=== PATIENT | female | born 1970 | race Caucasian/White ===

== ENCOUNTER 2019-04-22 00:35 | Day surgery (SDC) | payer OTHER, SELFPAY ==
[2019-04-17 10:35] VITALS: BMI 21.5
--- NOTE | 2019-04-22 10:41 | WPDANESEPPF ---
Anes - Initial Pre Proc Eval Procedure: Operation Date: 04/22/19 11:30 Proposed Procedures p Screening Colonoscopy - Triston Alberto MD Date/Time: 04/22/19 10:41 Surgeon: Triston Alberto MD Pre Op Diagnosis: neoplasm screening Patient Data Age: 49 Gender: F Height: 5 ft Weight: 50 kg Allergies Allergy/AdvReac Type Severity Reaction Status Date / Time Penicillins Allergy Unknown Verified 04/17/19 10:34 Home Medications Medication Instructions Recorded Confirmed Type eletriptan [Relpax] 20 mg PO ONCE PRN 04/17/19 04/17/19 History Patient hx anesthesia problems: none Family hx anesthesia problems: none PMFSH Past Medical History Medical History Hx of migraines Family History Family History Father Family history of elevated blood lipids Family history of obesity Patient's father is in good health Family history of allergic disorder Malignant neoplasm of prostate Mother Family history of elevated blood lipids Family history of osteoporosis Patient's mother is in good health Family history of malignant neoplasm of breast in first degree relative Grandparent Family history of osteoporosis Cerebrovascular accident Carcinoma of colon Diabetes mellitus Family history of malignant neoplasm of cervix Family history of malignant neoplasm of ovary Social History Social History Smoking status: Never smoker Alcohol intake: current Gender identity (if verbalized by the patient): Female Anes - Eval Final PreProcedure Day of Procedure 04/22/19 10:41 Patient weight: normal Heart: regular rate and rhythm Lungs: clear to auscultation Airway: Mallampati scale class 1 Neurological: alert and oriented Last oral intake: >/= 8 hours ASA classification: II Emergent: no Anesthetic plan: proceed Anesthesia type and monitoring: general GIVS and standard monitoring Informed Consent: The patient's anesthetic plan and its attendant risks and benefits were discussed with the patient/family/POA. Questions were solicited and answers provided to the satisfaction of the patient/family/POA.
[2019-04-22 10:47] VITALS: BMI 22.1
[2019-04-22] MEDS: LACTATED RINGERS 1,000 ML 150 ML IV CONT (10:52)
[2019-04-22 10:54] VITALS: BP 125/73; PULSE 62; RESP 16; TEMP 36.9; O2SAT 100
--- NOTE | 2019-04-22 11:19 | P.HP_ITS ---
History of Present Illness History of Present Illness Consent: Risks, benefits, and alternatives have been discussed and questions answered. Patient agrees to proceed with procedure. Chief complaint: neoplasm screening Narrative: Antonia Knowles is a 49 year old female [facility] Past Medical History Medical History Hx of migraines Family History Family History Father Family history of elevated blood lipids Family history of obesity Patient's father is in good health Family history of allergic disorder Malignant neoplasm of prostate Mother Family history of elevated blood lipids Family history of osteoporosis Patient's mother is in good health Family history of malignant neoplasm of breast in first degree relative Grandparent Family history of osteoporosis Cerebrovascular accident Carcinoma of colon Diabetes mellitus Family history of malignant neoplasm of cervix Family history of malignant neoplasm of ovary Social History Social History Smoking status: Never smoker Alcohol intake: current Gender identity (if verbalized by the patient): Female Meds Home Medications and Allergies Home Medications Medication Instructions Recorded Confirmed Type eletriptan [Relpax] 20 mg PO ONCE PRN 04/17/19 04/22/19 History Allergies Allergy/AdvReac Type Severity Reaction Status Date / Time Penicillins Allergy Unknown Verified 04/22/19 11:04 Vital Signs Vital Signs - 24 hr 04/22/19 10:54 Temperature 36.9 C Pulse Rate 62 Respiratory Rate 16 Blood Pressure 125/73 Pulse Oximetry 100 Exam Const: General: alert Orientation/consciousness: patient oriented x3 Resp: Auscultation: clear to auscultation bilaterally Cardio: Rhythm: regular rhythm GI: GI Palp: Yes Soft to palpation and No Tenderness to palpation present (GI) Neuro: General: patient oriented x3 Assessment and Plan Assessment and plan (1) Colon cancer screening: Code(s): Z12.11 - Encounter for screening for malignant neoplasm of colon Status: Acute Assessment and Plan: Colonoscopy with possible biopsy or polypectomy or cautery or injection of substances.
[2019-04-22 11:48] VITALS: BP 100/65; PULSE 73; RESP 16; O2SAT 100
[2019-04-22 11:58] VITALS: BP 104/69; PULSE 66; RESP 15; O2SAT 100
[2019-04-22 12:08] VITALS: BP 114/76; PULSE 65; RESP 18; O2SAT 100
== END 2019-04-22 12:22 | disposition home or self-care (01) ==
PROVIDERS: PCP Nurse Practitioner Family; Visit Provider Internal Medicine Gastroenterology
PROC: 0DJD8ZZ Inspection of Lower Intestinal Tract, Via Natural or Artificial Opening Endoscopic (ICD-10-PCS; CPT 45378; principal; 2019-04-22 11:30)
DX: Z12.11 Encounter for screening for malignant neoplasm of colon (principal); K57.30 Diverticulosis of large intestine without perforation or abscess without bleeding
CPT/HCPCS: 45378; J2704; J7120

== ENCOUNTER 2023-12-11 14:06 | Outpatient (CLI) | payer OTHER, SELFPAY ==
[2023-12-11 14:41] LABS: Hematocrit 42.3 % (37.0-47.0); Mean Corpuscular HGB Conc 33.1 g/dl (32-36); Mean Corpuscular Hemoglobin 30.7 pg (26-34); Mean Corpuscular Volume 92.8 fl (80-100); Mean Platelet Volume 9.4 fl (7.4-10.4); Platelet Count Result 275 k/mm3 (150-375); Red Blood Count 4.56 M/mm3 (4.2-5.4); Red Cell Distribution Width 12.7 % (11.5-14.5); White Blood Count 6.3 K/mm3 (4.5-10.0)
[2023-12-11 14:54] LABS: Alanine Aminotransferase 36 U/L (6-35); Albumin Level 4.6 g/dL (3.5-5.1); Alkaline Phosphatase 51 U/L (38-126); Anion Gap 8 mmol/L (4-12); Aspartate Amino Transferase 36 U/L (14-36); Bilirubin,Total 0.4 mg/dL (0.2-1.3); Blood Urea Nitrogen 18 mg/dL (7-17); Calcium 9.5 mg/dL (8.4-10.2); Carbon Dioxide 30 mmol/L (22-30); Chloride 101 mmol/L (98-107); Estimated Glomerular Filt Rate > 60; Glucose 85 mg/dL (65-110); Potassium 3.9 mmol/L (3.4-5.0); Sodium 139 mmol/L (137-145)
[2023-12-11 16:35] LABS: Thyroid Stimulating Hormone Reflex 0.995 uIU/mL (0.465-4.68)
[2023-12-11 17:10] LABS: Hepatitis B Surface Antigen Negative (Negative)
[2023-12-11 17:16] LABS: HAV RESULT Negative (Negative); Hepatitis B Core IgM Result Negative (Negative)
[2023-12-11 17:28] LABS: Hepatitis C Virus Antibody Negative (Negative)
[2023-12-12 15:19] LABS: GGT 29 U/L (3-70)
[2023-12-13 05:03] LABS: Hepatitis B Core Ab Total NON-REACTIVE (NON-REACTIVE)
[2023-12-13 05:18] LABS: Ceruloplasmin 31 mg/dL (14-48)
[2023-12-14 14:44] LABS: Immunoglobulin A 173 mg/dL (47-310); TTG IGA AB <1.0 U/mL
[2023-12-17 15:44] LABS: ALT 28 U/L (6-29); Alpha-2-Macroglobulin 184 mg/dL (106-279); Apolipoprotein A1 166 mg/dL (101-198); Fibrosis Stage F0; GGT 30 U/L (3-70); Haptoglobin 120 mg/dL (43-212); Necroinflammat Act Grade A0; Reference ID 5183789; Total Bilirubin 0.3 mg/dL (0.2-1.2)
[2023-12-18 04:53] LABS: Actin Antibody (IgG) <20 U (<20)
[2023-12-18 13:24] LABS: LKM 1 Antibody <=20.0 U (<=20.0)
== END 2023-12-11 14:07 | disposition home or self-care (01) ==
LOC: ANHLAB 14:08
PROVIDERS: PCP Nurse Practitioner Family; Visit Provider Nurse Practitioner
DX: R74.8 Abnormal levels of other serum enzymes (principal); K74.60 Unspecified cirrhosis of liver
CPT/HCPCS: 36415; 80053; 80074; 81596; 82390; 82784; 82977; 84443; 85027; 86038; 86039; 86364; 86376; 86704

== ENCOUNTER 2023-12-24 08:04 | Outpatient (CLI) | payer OTHER, SELFPAY ==
--- NOTE | ~2023-12-24 | US_ITS ---
EXAMINATION: US right upper quadrant DATE: 12/24/2023 08:33 INDICATION: Abnormal liver function tests. TECHNIQUE: Multiple grayscale and Doppler ultrasound images of the abdomen were obtained. COMPARISON: None FINDINGS: The visualized portions of the head, body, and tail of the pancreas are normal. The liver i s normal without focal lesion. There is normal flow in main portal vein. The gallbladder is normal in size. No gallstones or gallbladder wall thickening. There is no sonographic Swanson's sign. The commo n duct is normal and measures 3 mm. IMPRESSION: 1. Normal right upper quadrant ultrasound. Reviewed, dictated and finalized at location [] ING ROOM OPERATOR
== END 2023-12-24 08:05 | disposition home or self-care (01) ==
LOC: ANHIMG 08:04
PROVIDERS: PCP Nurse Practitioner Family; Visit Provider Nurse Practitioner
DX: R74.8 Abnormal levels of other serum enzymes (principal)
CPT/HCPCS: 76705

== ENCOUNTER 2024-05-14 12:59 | Outpatient (CLI) | payer OTHER, SELFPAY ==
--- NOTE | ~2024-05-14 | MMUS_ITS ---
EXAMINATION: MM diagnostic glen BI w theo, US breast RT limited HISTORY: Probable right breast abnormality TECHNIQUE: Additional 3-D tomosynthesis images of the breasts were performed and synthetic 2-D images were generated. CAD analysis was submitted and interpreted. High resolution Limited right breast ult rasound was performed. COMPARISON: 06/18/2023 BREAST PARENCHYMAL COMPOSITION: Not dense: There are scattered areas of fibroglandular density. FINDINGS: MAMMOGRAPHIC FINDINGS: There are no suspicious masses, calcifications or architectural distortion in either breast to sugges t malignancy. ULTRASOUND: Limited right breast ultrasound: Normal heterogeneous echotexture without focal solid or cystic mass. IMPRESSION: 1. No evidence for malignancy in either breast. 2. Routine yearly screening mammogram and regular clinical breast examination are recommended. BI-RADS Category 1: Negative Reviewed, dictated and finalized at location A. IMPRESSION: 1. No evidence for malignancy in either breast. 2. Routine yearly screening mammogram and regular clinical breast examination a re recommended. BI-RADS Category 1: Negative
--- OUTSIDE RECORDS SUMMARY | 2024-05-14 14:19 | XMS_ITS | Clinical Summary ---
Author Organization [facility] Address [facility] [place] [address] Care Team Providers Care Bit Bender Name Role Phone Beatris Rao NP Primary Care Provider [phone] Allergies Active Allergy Reactions Criticality Noted Date Comments Penicillins Unknown 11/08/2009 Medications eletriptan (RELPAX) 40 mg tabletIndicatio ns:Migraine 8 Active multivitamin tabletIndicatio ns:Vitamin Deficiency Prevention Active cholecalciferol , vitamin D3, 1,000 unit tablet,chewable Take by mouth. Active azithromycin (ZITHROMAX) 250 mg tablet azithromycin 250 mg tablet Active fluticasone propionate (FLONASE) 50 mcg/actuation nasal spray fluticasone propionate 50 mcg/actuation nasal spray,suspension Active metroNIDAZOLE (FLAGYL) 500 mg tablet TK 1 T PO Q 8 H FOR 7 DAYS 0 9 Active eletriptan (RELPAX) 20 mg tablet eletriptan 20 mg tablet tk 1 tab as needed for migraines Active atovaquone-prog uanil (MALARONE) 250-100 mg tablet atovaquone 250 mg-proguanil 100 mg tablet Active rosuvastatin (CRESTOR) 20 mg tablet Take 1 tablet (20 mg total) by mouth daily Active omeprazole (PriLOSEC) 20 mg capsule TAKE 1 CAPSULE BY MOUTH 30 TO 60 MINUTES BEFORE BREAKFAST 5 Active Active Problems Problem Noted Date Diagnosed Date Breast cancer screening, high risk patient 02/01 Encounters Date Type Department Care Team Description 03/17/2024 9:45 AM BIOFUELS OPERATIONS MANAGER Office Visit [facility] Pulmonary at [place] [address] [facility] [address] [place] [address] Antonio Vazquez MD Lung nodule, multiple (Primary Dx) 03/10/2024 9:47 AM BIOFUELS OPERATIONS MANAGER - 03/10/2024 11:59 PM BIOFUELS OPERATIONS MANAGER Hospital Encounter [facility] [address] [place] [address] Lung nodule, multiple Discharge Disposition: Discharge to home or self care from Last 3 Months Medical History Medical History Date Comments GERD (gastroesophageal reflux disease) Migraines Hypercholesteremia Family History Medical History Relation Name Comments Prostate cancer Father Prostate ca - (Added by TW Conv) Breast cancer Mother Adenocarcinoma of breast - (Added by TW Conv) Relation Name Status Comments Father Mother Social History Tobacco Use Types Packs/Day Years Used Date Smoking Tobacco: Never Comments No Sex and Gender Information Value Date Recorded Sex Assigned at Not on file Legal Sex Female 5:46 AM BIOFUELS OPERATIONS MANAGER Gender Identity Female 03/10/2022 10:57 AM BIOFUELS OPERATIONS MANAGER Sexual Orientation Straight 03/10/2022 10 :57 AM BIOFUELS OPERATIONS MANAGER Obstetrics History Last Filed Vital Signs Vital Sign Reading Time Taken Comments Blood Pressure 102/58 03/17/2024 9:41 AM BIOFUELS OPERATIONS MANAGER Pulse 70 03/17/2024 9:41 AM BIOFUELS OPERATIONS MANAGER Temperature 36.3 C (97.3 F) 03/17/2024 9:41 AM BIOFUELS OPERATIONS MANAGER Respiratory Rate 16 08/06/2023 11:0 5 AM CDT Oxygen Saturation 99% 03/17/2024 9:41 AM BIOFUELS OPERATIONS MANAGER Inhaled Oxygen Concentration - - Weight 53.5 kg (117 lb 14.4 oz) 03/17/2024 9:41 AM BIOFUELS OPERATIONS MANAGER Height 152.4 cm (5') 03/17/2024 9:41 AM BIOFUELS OPERATIONS MANAGER Body Mass Index 23.03 03/17/2024 9:41 AM BIOFUELS OPERATIONS MANAGER Plan of Treatment Health Maintenance Due Date Last Done Comments Cervical Cancer Screening 1969 Colon Cancer Screening-Colonoscopy 1969 Depression Screening 1969 Hepatitis C Screening 1969 DTaP/Tdap/Td Vaccine (1 - Tdap) 1980 Hepatitis B Screening 1987 Regular Well Visit/Exam 18-64 1987 Covid-19 Vaccine ( season) 2023 11/18/2020, 05/07/2020, 04/13/2020 Breast Cancer Screening-Mammogram 06/17/2024 06/18/2023, 05/03/2022, 03/21/2021, Additional history exists Zoster Vaccine Completed 01/12/2021, 09/20/2020 Influenza Vaccine Completed 11/19/2023, , 11/27/2018, Additional history exists Pneumococcal vaccine <65 Aged Out No longer eligible based on patient's age to complete this topic Procedures Procedure Name Priority Date/Time Associated Diagnosis Comments CT CHEST WO CONTRAST Schedule Routine, Read Routine (OP Routine) 03/10/2024 10:11 AM BIOFUELS OPERATIONS MANAGER Lung nodule, multiple DIAGNOSTIC MAMMOGRAM BILATERAL W BENNIE Schedule Routine, Read Routine (OP Routine) 06/18/2023 2:24 PM CDT Mass of left breast, unspecified quadrant from Last 3 Months or Most Recently Relevant to Health Maintenance Results * CT chest without contrast (03/10/2024 10:11 AM BIOFUELS OPERATIONS MANAGER) Anatomical Region Laterality Modality Body N/A Computed Tomogra phy 03/11/2024 8:04 AM BIOFUELS OPERATIONS MANAGER Narrative 03/11/2024 8:16 AM BIOFUELS OPERATIONS MANAGER EXAM DESCRIPTION: CT CHEST WO CONTRAST REASON FOR STUDY: Lung nodules, multiple, lung nodule F/u to pulmonary nodules last seen on ct done 03/14/23. TECHNIQUE: CT scan of the chest performed without intravenous contrast using helical scanning technique. Reconstructed coronal and sagittal MPR images reviewed. All images stored on PACS. Automated exposure control was used as a dose optimization technique for this examination. COMPARISON: Outside CT 03/14/2023 REFERENCE: Per ACR white paper recommendations, unless otherwise specified no follow-up imaging is recommended for incidental renal and adrenal lesions per consensus recommendations based on imaging criteria. Further lab evaluation could be pursued based on clinical findings. FINDINGS: The sensitivity for detection of solid visceral lesions is diminished without the use of intravenous contrast. HARDWARE/LINES/TUBES: None. VASCULATURE: No thoracic aortic aneurysm. MEDIASTINUM/HEART: Heart size within normal limits. No significant pericardial effusion. Esophagus is unremarkable. CORONARY ARTERY CALCIFICATION: No significant coronary atherosclerotic calcifications. LYMPH NODES: Partially calcified lymph nodes likely representing sequela of previous granulomatous disease. No pathologically enlarged lymphadenopathy. AIRWAY: Central airways are patent. LUNGS: Biapical pleural-parenchymal scarring. No focal consolidation, pneumothorax, or pleural effusion. Perifissural calcified nodule along the right oblique fissure, likely sequela of previous granulomatous disease. Multiple pulmonary nodules, including: Unchanged 4 mm subpleural medial left upper lobe pulmonary nodule (4; 26). Unchanged 2 mm lateral left upper lobe pulmonary nodule (4; 32). Unchanged irregular 5 mm right upper lobe pulmonary nodule (4; 18). No definite new suspicious pulmonary nodules. UPPER ABDOMEN: Trace perisplenic free fluid of unknown etiology, new from prior. BONES/SOFT TISSUES: No aggressive appearing osseous lesions. No acute osseous abnormality. subcentimeter nodules not meeting size criteria for imaging follow-up. IMPRESSION: Unchanged bilateral pulmonary nodules measuring up to 5 mm. No new suspicious pulmonary nodules. Trace perisplenic free fluid of unknown etiology, new from prior. Consider further evaluation with dedicated CT abdomen and pelvis as clinically appropriate. THIS IS AN ELECTRONICALLY VERIFIED FINAL REPORT 03/11/2024 8:16 AM - Electronically signed by Benjamin Montes M.D. NS: NS Report ID: [id number] Reading Location: [place] [address] Procedure Note Benjamin Montes MD - 03/11/2024 EXAM DESCRIPTION: CT CHEST WO CONTRAST REASON FOR STUDY: Lung nodules, multiple, lung nodule F/u to pulmonary nodules last seen on ct done 03/14/23. TECHNIQUE: CT scan of the chest performed without intravenous contrastusing helical scanning technique. Reconstructed coronal and sagittal MPR images reviewed. All images stored on PACS. Automated exposure control was usedas a dose optimization technique for this examination. COMPARISON: Outside CT 03/14/2023 REFERENCE: Per ACR white paper recommendations, unless otherwise specifiedno follow-up imaging is recommended for incidental renal and adrenal lesionsper consensus recommendations based on imaging criteria. Further labevaluation could be pursued based on clinical findings. FINDINGS: The sensitivity for detection of solid visceral lesions is diminishedwithout the use of intravenous contrast. HARDWARE/LINES/TUBES: None. VASCULATURE: No thoracic aortic aneurysm. MEDIASTINUM/HEART: Heart size within normal limits. No significant pericardial effusion. Esophagus is unremarkable. CORONARY ARTERY CALCIFICATION: No significant coronary atherosclerotic calcifications. LYMPH NODES: Partially calcified lymph nodes likely representing sequelaof previous granulomatous disease. No pathologically enlargedlymphadenopathy. AIRWAY: Central airways are patent. LUNGS: Biapical pleural-parenchymal scarring. No focal consolidation, pneumothorax, or pleural effusion. Perifissural calcified nodule alongthe right oblique fissure, likely sequela of previous granulomatous disease. Multiple pulmonary nodules, including: Unchanged 4 mm subpleural medial left upper lobe pulmonary nodule (4;26). Unchanged 2 mm lateral left upper lobe pulmonary nodule (4; 32). Unchanged irregular 5 mm right upper lobe pulmonary nodule (4; 18). No definite new suspicious pulmonary nodules. UPPER ABDOMEN: Trace perisplenic free fluid of unknown etiology, new from prior. BONES/SOFT TISSUES: No aggressive appearing osseous lesions. No acute osseous abnormality. subcentimeter nodules not meeting size criteriafor imaging follow-up. IMPRESSION: Unchanged bilateral pulmonary nodules measuring up to 5 mm. No newsuspicious pulmonary nodules. Trace perisplenic free fluid of unknown etiology, new from prior.Consider further evaluation with dedicated CT abdomen and pelvis as clinically appropriate. THIS IS AN ELECTRONICALLY VERIFIED FINAL REPORT 03/11/2024 8:16 AM - Electronically signed by Benjamin Montes M.D. NS: NS Report ID: [id number] Reading Location: [id number] Antonio Vazquez MD [facility] CT PROCEDURES Final Result * Diagnostic Mammogram Bilateral W Bennie (06/18/2023 2:24 PM CDT) Anatomical Region Laterality Modality Breast Bilateral Mammography 06/18/2023 2:38 PM CDT Impressions 06/18/2023 2:46 PM CDT 1. No mammographic evidence of malignancy in EITHER breast. 2. No sonographic evidence of in the region of concern in the LEFT breast. OVERALL FINAL ASSESSMENT: BI-RADS Category 1: Negative. RECOMMENDATION: Annual screening mammography is recommended. Dictated by: Reymundo Bustos M.D. The radiology attending physician has personally reviewed this study, and had reviewed and/or edited this written report and agrees with it. Electronically signed by: Sandra Cortez M.D. Narrative 06/18/2023 2:46 PM CDT EXAMINATION: BILATERAL DIGITAL DIAGNOSTIC MAMMOGRAM INCLUDING CAD AND BILATERAL DIGITAL BREAST TOMOSYNTHESIS; LEFT BREAST SONOGRAM HISTORY: 53-year-old woman with palpable area in the left breast with intermittent tenderness for the past 2 months. She is due for bilateral mammogram. COMPARISON: 05/03/2022 mammogram TECHNIQUE: Full field digital mammographic views of BOTH breasts were performed, including computer aided detection (CAD) and BILATERAL digital breast tomosynthesis (DBT). Directed ultrasound evaluation of the LEFT breast was performed. BREAST PARENCHYMAL COMPOSITION: There are scattered areas of fibroglandular density. MAMMOGRAM FINDINGS: A marker is placed over the area of palpable concern in the LEFT breast. There is no mammographic correlate. There is no suspicious mass, grouped calcifications, or architectural distortion in EITHER breast. SONOGRAM FINDINGS: There is no focal abnormal solid or cystic lesion suggestive of malignancy in the area of recent concern. Procedure Note Sandra Cortez MD - 06/18/2023 EXAMINATION: BILATERAL DIGITAL DIAGNOSTIC MAMMOGRAM INCLUDING CAD AND BILATERAL DIGITAL BREAST TOMOSYNTHESIS; LEFT BREAST SONOGRAM HISTORY: 53-year-old woman with palpable area in the left breast with intermittent tenderness for the past 2 months. She is due for bilateral mammogram. COMPARISON: 05/03/2022 mammogram TECHNIQUE: Full field digital mammographic views of BOTH breasts were performed, including computer aided detection (CAD) and BILATERAL digital breast tomosynthesis (DBT). Directed ultrasound evaluation of the LEFT breast was performed. BREAST PARENCHYMAL COMPOSITION: There are scattered areas of fibroglandular density. MAMMOGRAM FINDINGS: A marker is placed over the area of palpable concern in the LEFT breast. There is no mammographic correlate. There is no suspicious mass, grouped calcifications, or architectural distortion in EITHER breast. SONOGRAM FINDINGS: There is no focal abnormal solid or cystic lesion suggestive of malignancy in the area of recent concern. IMPRESSION: 1. No mammographic evidence of malignancy in EITHER breast. 2. No sonographic evidence of in the region of concern in the LEFT breast. OVERALL FINAL ASSESSMENT: BI-RADS Category 1: Negative. RECOMMENDATION: Annual screening mammography is recommended. Dictated by: Reymundo Bustos M.D. The radiology attending physician has personally reviewed this study, and had reviewed and/or edited this written report and agrees with it. Electronically signed by: Sandra Cortez M.D. Robert Chen MD IMG MAMMO PROCEDURES Final Result from Last 3 Months or Most Recently Relevant to Health Maintenance Insurance [facility] [id number] [facility] [id number] [facility] [id number] Member Subscriber Plan / Payer (Ef fective 2020-Present) Name:Antonia Osborne Member ID:[id number] Relation to Subscriber:Self Name:Antonia Osborne Subscriber ID:[id number] Payer ID:[id number] Type:[employer] HMO/PPO Address: [address] [place] [phone] Care Teams Bit Bender Relationship Specialty Start Date End Date Beatris Rao NP PCP - General Family Medicine 06/07/23
--- OUTSIDE RECORDS SUMMARY | 2024-05-14 14:19 | XMS_ITS | Referral Summary ---
Author Organization [facility] Address [facility] [place] [address] Care Team Providers Care Fibre Optic Cable Splicer Name Role Phone Beatris Rao NP Primary Care Provider Encounters Date Type Department Care Team Description 03/17/2024 9:45 AM FIELD CROP FARMER Office Visit [facility] Medical Group Pulmonary at [address] [place] [address] Antonio Vazquez MD Lung nodule, multiple (Primary Dx) 03/10/2024 9:47 AM FIELD CROP FARMER - 03/10/2024 11:59 PM FIELD CROP FARMER Hospital Encounter [facility] [address] [place] [address] Lung nodule, multiple Discharge Disposition: Discharge to home or self care from Last 3 Months Allergies Active Allergy Reactions Criticality Noted Date [...] MOUTH 30 TO 60 MINUTES BEFORE BREAKFAST Active Active Problems Problem Noted Date Diagnosed Date Breast cancer screening, high risk patient 02/01 Social History Tobacco Use Types Packs/Day Years Used Date Smoking Tobacco: Never Comments No Sex and Gender Information Value Date Recorded Sex Assigned at Not on file Legal Sex Female 5:46 AM FIELD CROP FARMER Gender Identity Female 03/10/2022 10:57 AM FIELD CROP FARMER Sexual Orientation Straight 03/10/2022 10 :57 AM FIELD CROP FARMER Last Filed Vital Signs Vital Sign Reading Time Taken Comments Blood Pressure 102/58 03/17/2024 9:41 AM FIELD CROP FARMER Pulse 70 03/17/2024 9:41 AM FIELD CROP FARMER Temperature 36.3 C (97.3 F) 03/17/2024 9:41 AM FIELD CROP FARMER Respiratory Rate 16 08/06/2023 11:0 5 AM CDT Oxygen Saturation 99% 03/17/2024 9:41 AM FIELD CROP FARMER Inhaled Oxygen Concentration - - Weight 53.5 kg (117 lb 14.4 oz) 03/17/2024 9:41 AM FIELD CROP FARMER Height 152.4 cm (5') 03/17/2024 9:41 AM FIELD CROP FARMER Body Mass Index 23.03 03/17/2024 9:41 AM FIELD CROP FARMER Plan of Treatment Not on file Procedures Procedure Name Priority Date/Time Associated Diagnosis Comments CT CHEST WO CONTRAST Schedule Routine, Read Routine (OP Routine) 03/10/2024 10:11 AM FIELD CROP FARMER Lung nodule, multiple DIAGNOSTIC MAMMOGRAM BILATERAL W BENNIE Schedule Routine, Read Routine (OP Routine) 06/18/2023 2:24 PM CDT Mass of left breast, unspecified quadrant from Last 3 Months or Most Recently Relevant to Health Maintenance Results * CT chest without contrast (03/10/2024 10:11 AM FIELD CROP FARMER) Anatomical Region Laterality Modality Body N/A Computed Tomogra phy 03/11/2024 8:04 AM FIELD CROP FARMER Narrative 03/11/2024 8:16 AM FIELD CROP FARMER EXAM DESCRIPTION: CT CHEST WO CONTRAST REASON [...] Benjamin Montes M.D. NS: NS Report ID: [id number] Reading Location: [id number] Procedure Note Benjamin Montes MD - 03/11/2024 [...] Benjamin Montes M.D. NS: NS Report ID: [id number] Reading Location: [place] [address] Antonio Vazquez MD IM CT PROCEDURES Final Result * Diagnostic Mammogram [...] Most Recently Relevant to Health Maintenance Insurance [facility] [id number] [employer] [facility] [id number] Care Teams Fibre Optic Cable Splicer Relationship Specialty Start Date End Date Beatris Rao NP PCP - General Family Medicine 06/07/23
--- OUTSIDE RECORDS SUMMARY | 2024-05-14 14:19 | XMS_ITS | Data Portability ---
Author Organization [place] [employer], Main Office Address [address] [place] [address] Care Team Providers Care Copper Etcher Name Role Phone YANNI GARCIA Primary Care Provider [phone] YANNI GARCIA Referring Provider [phone] Assessment Encounter Date Assessment Date Assessment LastModified by Organization Details LastModified Time 05/10/2022 05/10/2022 C-scope- 04/2019- normal- repeat 2029 WWE- RIGGING HELPER- Gustavo Mammogram- [facility] 04/2022- managed by RIGGING HELPER WEA-03/23/21 Call office if worse, ER if life threatening illness RTC 6 months and PRN She does voice understanding of plan and agrees [email or web address] Not available 05/10/2022 10:39:15 08/31/2022 08/31/2022 HPI: 52-year-old female came in today for evaluation of prominence of the soft tissue in the posterior aspects of both knees. She noticed this prominence over year ago. She was in the dressing room that had multiple mirrors and was able to see the posterior aspect of both her knees. She thought they were very prominent. She mentioned this to her primary care doctor when she saw her last and so she was sent for evaluation. Patient is an avid runner and has been doing this for years. She has no pain with any activities. Her knees do not hurt her at all. She has no limitations. she was just concerned about the prominence of the soft tissue. Physical exam: 52-year-old female alert pleasant. She is 4 ft 11 and 112 lb. She walks very well. Range of motion both knees is from 0-145 degrees. There is no pain with range of motion. Hip range of motion is full without discomfort. No pain with patellofemoral grind bilaterally. No swelling in either lower extremity. Normal stability in both knees. 2+ dorsalis pedis pulse in both feet. I had the patient stand and when she stands she hyperextends her knees about 3 or 4 . At that point there was a prominence of the soft tissue posteriorly. When she is supine is minimally prominent. There is no tenderness to it. they are nonpulsatile. Skin is all normal there. Impression: Patient has prominence of the soft tissue in the posterior aspect of both her knees. I think this is due to the fact that when she stands she hyperextends causing this area to be more prominent. She is completely asymptomatic, even if she was developing small Byrd cysts there would be no treatment needed since she is not having any symptoms. But again I think this is more prominence of the soft tissue due to hyperextension of her knees when she is standing. If she starts to develop symptoms or problems with the knees certainly we can see her back. Otherwise we will see her back as needed. [email or web address] Not available 08/31/2022 11:45:27 11/08/2022 11/08/2022 C-scope- 04/2019- normal- repeat 2029 WWE- RIGGING HELPER- Gustavo Mammogram- [facility] 04/2022- managed by RIGGING HELPER WEA-05/10/22 Call office if worse, ER if life threatening illness RTC 6 months and PRN She does voice understanding of plan and agrees [email or web address] Not available 11/08/2022 13:49:56 Plan of Treatment Reminders Order Date Submit Date Provider Last Modified By Organization Details Last Modified Time Details Appointments Any 15 2024 09:30A Leida Rao APRN Not available Not available Not available Lab lipid panel, serum 2023 AMALIA Not available 11/21/2023 15:26:22 CMP, serum or plasma 2023 [email or web address] Not available 11/28/2023 08:51:08 CBC w/ auto diff 2023 [email or web address] Not available 11/28/2023 08:51:08 TSH, serum or plasma 2023 [email or web address] Not available 11/28/2023 08:51:08 vitamin D, 25-hydrox y, total, serum 2023 024 [email or web address] Not available 11/28/2023 08:51:08 HbA1c (hemoglob in A1c), blood 2023 024 [email or web address] Not available 11/28/2023 08:51:09 CBC w/ auto diff 2022 023 AMALIA Not available 08/30/2022 13:08:21 CMP, serum or plasma 2022 023 AMALIA Not available 08/30/2022 13:14:38 lipid panel, serum 2022 023 AMALIA Not available 08/30/2022 13:14:41 TSH, serum, reflex free T4 2022 023 Not available 09/04/2022 15:35:27 Referral pulmonolo gist referral 2023 024 abeba Vazquez MD, [address] [place] [address], [address] [facility] [address], [place], [address], 12/10/2023 07:34:53 orthopedi c surgeon referral 2022 023 Antonio Abebe MD, [address], [facility], [place], [address], 06/29/2022 09:22:45 Procedures None recorded. Surgeries None recorded. Imaging XR, knee 2022 023 [email or web address] [facility], [address] [place] [address] Rd, [place], [address], 08/31/2022 11:47:37 bone density 2022 023 Not available 10/03/2022 09:38:40 Medication Orders Flonase Allergy Relief 50 mcg/actua tion nasal spray,ebony pension 2023 024 [facility] #[id number], [address], [place], [id number], 11/21/2023 11:05:08 omeprazol e 20 mg capsule,d elayed release 2023 024 [facility] #[id number], [address], [place], [id number], 11/21/2023 11:05:02 eletripta n 40 mg tablet 2023 024 [facility] #[id number], [address], [place], [id number], 11/21/2023 11:05:01 rosuvasta tin 20 mg tablet 2023 024 [facility] #[id number], [address], [place], [id number], 11/21/2023 11:05:09 Patient TargetsNo targets recorded. Patient Instructions Encounter Date Encounter Id Patient Instructions Last Modified By Organization Details Last Modified Time 05/10/2022 [id number] INFLUENZA VACCIN E TD/TDAP Recommended today, patient declined Ordered P atient will get at local pharmacy/health department PNEUMONIA VACCINE Ordered Recommende d today, patient declined Patient will get at local pharmacy/health department Recomme nded at age 64 SHINGLES Ordered Recommende d today, patient declined Patient will get at local pharmacy/health department MAMMOGRAM: Last Mammogram _ No screening necessary patient is up to date DEXA SCAN Recommended today, but patient declined Ordered CERVICAL SCREENING/PELVIC EXAMINATION Recommended today, but patient declined Ordered N o screening necessary patient is up to date COLORECTAL SCREENING: Last Colonoscopy No screening necessary patient is up to date DEPRESSION SCREENING Negative BMI Overweight Appropr iate NUTRITION Continue healthy eating & exercise PHYSICAL ACTIVITY Appropriate physical activity minimum of 10-20 minutes of activity that causes mild breathlessness/day minimum of 20-30 minutes activity that causes mild breathlessness/day minimum of 30-40 minutes of activity that causes mild breathlessness/day VISION Ordered Recommende d today ALCOHOL USE No alcohol use TOBACCO USE non smoker LUNG CANCER SCREENING Non Smoker-not indicated SEXUALLY ACTIVE Yes, Patient is in monogamous relationship HEPATITIS C SCREENING Not indicated GLUCOSE SCREENING Ordered LIPID SCREENING Diagnosis of Hyperlipidemia [email or web address] Not available 05/10/2022 10:43:02 05/16/2023 [id number] Follow up in 6 months Referral to supervisor last model department Labs at next visit Not available 05/16/2023 10:33:20 11/21/2023 [id number] Follow up in 6 months Obtain labs Tests: Referral: Recommend: Tetanus vaccine Not available 11/21/2023 10:58:24 Reason for Referral Orthopedic Surgeon Referral for Synovial cyst of knee Referring Physician: Yanni Garcia, Internal Medicine, Encounter Date: 05/10/2022 [employer] Refinish Technician Referral for M ultiple nodules of lung Referring Physician: Beatris Rao, Internal Medicine, Encounter Date: 05/16/2023 Results Created Date Observation Date Name Description Value Unit Range Abnormal Flag Note LastModifiedBy Organization Detail LastModifiedTime 08/31/19 23 08/30/2022 CBC/C OMPLE TE BLD COUNT W/DIF F white blood cells 6.0 x10'3 /uL 4.2-[address] [facility] (Lab) [address] [place], [address], 08/30/2022 13:08:21 08/31/19 23 08/30/2022 CBC/C OMPLE TE BLD COUNT W/DIF F red blood cells 4.37 x10'6 /uL 3.80-[address] [facility] (Lab) [address] [place], [address], 08/30/2022 13:08:21 08/31/19 23 08/30/2022 CBC/C OMPLE TE BLD COUNT W/DIF F hemoglobin 13.4 g/dL 12.0-[address] [facility] (Lab) [address] [place], [address], 08/30/2022 13:08:21 08/31/19 23 08/30/2022 CBC/C OMPLE TE BLD COUNT W/DIF F hematocrit 41.8 % 35.7-[address] [facility] (Lab) [address] [place], [address], 08/30/2022 13:08:21 08/31/19 23 08/30/2022 CBC/C OMPLE TE BLD COUNT W/DIF F mean red cell volume 95.7 fL 82.0-[address] [facility] (Lab) [address] [place], [address], 08/30/2022 13:08:21 08/31/19 23 08/30/2022 CBC/C OMPLE TE BLD COUNT W/DIF F mean red cell hemoglobin 30.7 pg 27.0-[address] [facility] (Lab) [address] [place], [address], 08/30/2022 13:08:21 08/31/19 23 08/30/2022 CBC/C OMPLE TE BLD COUNT W/DIF F mean RBC HGB concentratio n 32.1 g/dL 31.0-[address] [facility] (Lab) [address] [place], [address], 08/30/2022 13:08:21 08/31/19 23 08/30/2022 CBC/C OMPLE TE BLD COUNT W/DIF F red cell distribution width 12.3 % 11.8-[address] [facility] (Lab) [address] [place], [address], 08/30/2022 13:08:21 08/31/19 23 08/30/2022 CBC/C OMPLE TE BLD COUNT W/DIF F platelets 270 x10'3 /uL 150-[address] [facility] (Lab) [address] [place], [address], 08/30/2022 13:08:21 08/31/19 23 08/30/2022 CBC/C OMPLE TE BLD COUNT W/DIF F mean platelet volume 9.7 fL 9.0-[address] [facility] (Lab) [address] [place], [address], 08/30/2022 13:08:21 08/31/19 23 08/30/2022 CBC/C OMPLE TE BLD COUNT W/DIF F neutrophils 48.1 % 39.0-[address] [facility] (Lab) [address] [place], [address], 08/30/2022 13:08:21 08/31/19 23 08/30/2022 CBC/C OMPLE TE BLD COUNT W/DIF F lymphocytes 36.3 % 16.0-4 7.0 Not Available [facility] (Lab) [address] [place], [address], 08/30/2022 13:08:21 08/31/1908/30/2022 CBC/C OMPLE TE BLD COUNT W/DIF F monocytes 8.9 % 5.0-[address] [facility] (Lab) [address] [place], [address], 08/30/2022 13:08:21 08/31/19 23 08/30/2022 CBC/C OMPLE TE BLD COUNT W/DIF F eosinophils 5.4 % 1.0-7. [address] [facility] (Lab) [address] [place], [address], 08/30/2022 13:08:21 08/31/19 23 08/30/2022 CBC/C OMPLE TE BLD COUNT W/DIF F basophils 0.8 % 0.0-2. [address] [facility] (Lab) [address] [place], [address], 08/30/2022 13:08:21 08/31/19 23 08/30/2022 CBC/C OMPLE TE BLD COUNT W/DIF F immature granulocytes 0.5 % 0.00-[address] [facility] (Lab) [address] [facility] [place], [address], 08/30/2022 13:08:21 08/31/19 23 08/30/2022 CBC/C OMPLE TE BLD COUNT W/DIF F neutrophils, absolute count 2.88 x10'3 /uL 1.5-8. [address] [facility] (Lab) [address] [place], [address], 08/30/2022 13:08:21 08/31/19 23 08/30/2022 CBC/C OMPLE TE BLD COUNT W/DIF F lymphocytes, absolute count 2.17 x10'3 /uL 1.07-[address] [facility] (Lab) [address] [place], [address], 08/30/2022 13:08:21 08/31/19 23 08/30/2022 CBC/C OMPLE TE BLD COUNT W/DIF F monocytes, absolute count 0.53 x10'3 /uL 0.29-[address] [facility] (Lab) [address] [place], [address], 08/30/2022 13:08:21 08/31/19 23 08/30/2022 CBC/C OMPLE TE BLD COUNT W/DIF F eosinophils, absolute count 0.32 x10'3 /uL 0.02-[address] [facility] (Lab) [address] [place], [address], 08/30/2022 13:08:21 08/31/19 23 08/30/2022 CBC/C OMPLE TE BLD COUNT W/DIF F basophils, absolute count 0.05 x10'3 /uL 0.01-[address] [facility] (Lab) [address] [place], [address], 08/30/2022 13:08:21 08/31/19 23 08/30/2022 CBC/C OMPLE TE BLD COUNT W/DIF F immature granulocytes ,absolute 0.03 x10'3 /uL 0.00-[address] [facility] (Lab) [address] [place], [address], 08/30/2022 13:08:21 08/31/19 23 08/30/2022 CBC/C OMPLE TE BLD COUNT W/DIF F nucleated red blood cells 0.0 % -0 Not Available [facility] (Lab) [address] [place], [address], 08/30/2022 13:08:21 08/31/19 23 08/30/2022 CBC/C OMPLE TE BLD COUNT W/DIF F NRBC# 0.00 x10'3 /uL Not Available [facility] (Lab) [address] [place], [address], 08/30/2022 13:08:21 08/31/19 23 08/30/2022 COMPR EHENS JESSE METAB OLIC PANEL sodium 141 mmol/ L 137-[address] [facility] (Lab) [address] [place], [address], 08/30/2022 13:14:38 08/31/19 23 08/30/2022 COMPR EHENS JESSE METAB OLIC PANEL potassium 4.8 mmol/ L 3.5-5. [address] [facility] (Lab) [address] [place], [address], 08/30/2022 13:14:38 08/31/19 23 08/30/2022 COMPR EHENS JESSE METAB OLIC PANEL chloride 103 mmol/ L 98-[address] [facility] (Lab) [address] [place], [address], 08/30/2022 13:14:38 08/31/19 23 08/30/2022 COMPR EHENS JESSE METAB OLIC PANEL carbon dioxide 30 mmol/ L 22-[address] [facility] (Lab) [address] [place], [address], 08/30/2022 13:14:38 08/31/19 23 08/30/2022 COMPR EHENS JESSE METAB OLIC PANEL anion gap 12.8 mmol/ L 14-[address] [facility] (Lab) [address] [place], [address], 08/30/2022 13:14:38 08/31/19 23 08/30/2022 COMPR EHENS JESSE METAB OLIC PANEL glucose 95 mg/dL 70-[address] [facility] (Lab) [address] [place], [address], 08/30/2022 13:14:38 08/31/19 23 08/30/2022 COMPR EHENS JESSE METAB OLIC PANEL BUN 11 mg/dL 8-[address] [facility] (Lab) [address] [place], [address], 08/30/2022 13:14:38 08/31/19 23 08/30/2022 COMPR EHENS JESSE METAB OLIC PANEL creatinine 0.68 mg/dL 0.66-[address] [facility] (Lab) [address] [place], [address], 08/30/2022 13:14:38 08/31/19 23 08/30/2022 COMPR EHENS JESSE METAB OLIC PANEL GFR >60 Refer ence Range : [place] ge GFR Healt hy Adult : >60 mL/mi n/1.7 3 m2 Chron ic Kidne y Disea se: 15-60 mL/mi n/1.7 3 m2 Kidne y Failu re: <15/m L/min /1.73 m2 www.n iddk. nih.g ov The MDRD study equat ion has not been valid ated in child zeeshan <18 years of age; pregn ant women ; the elder ly >85 years of age; or in some racia l or ethni c subgr oups, such as Hispa nics. Outsi de the valid ated jayme eters , estim ated GFR is less accur ate, requi ring clini papo judgm ent on a case- by-ca se basis . Clini papo inter preta tion for other races and ages must be made by the clini loreta. The MDRD study equat ion has not been valid ated for the evalu ation of serum creat inine relat ed to nutri nancy l statu s or medic ation usage . For perso ns <18 years of age, a pedia tric GFR calcu lator is avail able on the [facility] websi te: https ://marcos quiles.jesika rowland.o rg/pr ofess ional s/kdo qi/gf r_cal culat or Not Available [facility] (Lab) [address] [place], [address], 08/30/2022 13:14:38 08/31/19 23 08/30/2022 COMPR EHENS JESSE METAB OLIC PANEL alkaline phosphatase 80 U/L 38-126 Not Available [facility] (Lab) [address] [place], [address], 08/30/2022 13:14:38 08/31/19 23 08/30/2022 COMPR EHENS JESSE METAB OLIC PANEL alanine aminotransfe rase 58 U/L 0-35 high Not Available [facility] (Lab) [address] [place], [address], 08/30/2022 13:14:38 08/31/19 23 08/30/2022 COMPR EHENS JESSE METAB OLIC PANEL aspartate aminotransfe rase 66 U/L 15-37 high Not Available [facility] (Lab) [address] [place], [address], 08/30/2022 13:14:38 08/31/19 23 08/30/2022 COMPR EHENS JESSE METAB OLIC PANEL bilirubin, total 0.40 mg/dL 0.20-[address] [facility] (Lab) [address] [place], [address], 08/30/2022 13:14:38 08/31/19 23 08/30/2022 COMPR EHENS JESSE METAB OLIC PANEL calcium 9.5 mg/dL 8.4-[address] [facility] (Lab) [address] [place], [address], 08/30/2022 13:14:38 08/31/19 23 08/30/2022 COMPR EHENS JESSE METAB OLIC PANEL total protein 7.2 g/dL 6.3-8. [address] [facility] (Lab) [address] [place], [address], 08/30/2022 13:14:38 08/31/19 23 08/30/2022 COMPR EHENS JESSE METAB OLIC PANEL albumin 4.3 g/dL 3.4-5. [address] [facility] (Lab) [address] [place], [address], 08/30/2022 13:14:38 08/31/19 23 08/30/2022 COMPR EHENS JESSE METAB OLIC PANEL globulin 2.9 g/dL 2.6-4. [address] [facility] (Lab) [address] [place], [address], 08/30/2022 13:14:38 08/31/19 23 08/30/2022 COMPR EHENS JESSE METAB OLIC PANEL A/G ratio 1.5 ratio 1.0-2. [address] [facility] (Lab) [address] [place], [address], 08/30/2022 13:14:38 08/31/19 23 08/30/2022 LIPID PANEL cholesterol 149 mg/dL 140-19 9 NIH LAY NSUS RECOM MENDA TION FOR TRENTON STERO L: ADULT CHILD LOW RISK: <200 <170 BORDE RLINE : <200- 239 ----- HIGH RISK: >240 >[address] [facility] (Lab) [address] [place], [address], 08/30/2022 13:14:41 08/31/19 23 08/30/2022 LIPID PANEL triglyceride s 104 mg/dL 0-150 NIH LAY NSUS REPOR T RECOM MENDA TION FOR TRIGL YCERI BHUMIKA: ADULT CHILD LOW RISK: <150 ----- BODER LINE: 150-1 99 ----- HIGH RISK: >200 ----- Not Available [facility] (Lab) [address] [place], [address], 08/30/2022 13:14:41 08/31/19 23 08/30/2022 LIPID PANEL HDL cholesterol 73 mg/dL 40- Not Available [facility] (Lab) [address] [place], [address], 08/30/2022 13:14:41 08/31/19 23 08/30/2022 LIPID PANEL LDL cholesterol, calculated 55 mg/dL 0-130 NIH LAY NSUS REPOR T RECOM MENDA TIONS FOR LDL: ADULT CHILD LOW RISK <130 <110 (OPTI MAL LDL) <100 ----- BORDE RLINE : 130-1 59 ----- HIGH RISK: >160 >130 A TRIGL YCERI DE RESUL T >400 INVAL IDATE S THE CALCU LATIO N FOR LDL FRACT IONAT ION - THE LDL RESUL T WILL NOT BE REPOR MELISSA. Not Available [facility] (Lab) [address] [place], [address], 08/30/2022 13:14:41 08/31/19 23 08/30/2022 TSH W/REF ARLEEN FT4 TSH with reflex free T4 3.230 uIU/m L 0.465- 4.680 Not Available [facility] (Lab) [address] [place], [address], 08/30/2022 14:00:15 10/14/19 23 10/13/2022 HEPAT ITIS ACUTE PANEL hepatitis A IgM antibody NON-RE ACTIVE non-re active For sampl es repor melissa as Borde rline React jesse for HAV IgM, it is recom armen d a new speci men be obtai miryam in 2 weeks and retes melissa. Not Available [facility] (Lab) [address] [place], [address], 10/13/2022 15:19:45 10/14/1910/13/2022 HEPAT ITIS ACUTE PANEL hepatitis A virus signal/cutof 0.01 0.00-0 .79 Not Available [facility] (Lab) [address] [place], [address], 10/13/2022 15:19:45 10/14/19 23 10/13/2022 HEPAT ITIS ACUTE PANEL hepatitis B core IgM antibody NON-RE ACTIVE non-re active Not Available [facility] (Lab) [address] [place], [address], 10/13/2022 15:19:45 10/14/1910/13/2022 HEPAT ITIS ACUTE PANEL HBV core IgM signal/cutof f 0.05 0.00-[address] [facility] (Lab) [address] [place], [address], 10/13/2022 15:19:45 10/14/1910/13/2022 HEPAT ITIS ACUTE PANEL hepatitis B surface antigen NON-RE ACTIVE non-re active All speci mens react jesse for Hepat itis B Surfa ce Antig en will refle x to refer ral lab confi rmato ry testi ng. Not Available [facility] (Lab) [address] [place], [address], 10/13/2022 15:19:45 10/14/19 23 10/13/2022 HEPAT ITIS ACUTE PANEL HBV surf.antigen signal/cutof f 0.06 0.00-[address] [facility] (Lab) [address] [place], [address], 10/13/2022 15:19:45 10/14/19 23 10/13/2022 HEPAT ITIS ACUTE PANEL hepatitis C antibody NON-RE ACTIVE non-re active All speci mens react jesse for Hepat itis C Virus antib estefani will refle x to PCR confi rmato ry testi ng. Pleas e allow 48-72 hours for resul ts. Not Available [facility] (Lab) [address] [place], [address], 10/13/2022 15:19:45 10/14/19 23 10/13/2022 HEPAT ITIS ACUTE PANEL hepatitis C virus signal/cutof 0.04 0.00-[address] [facility] (Lab) [address] [place], [address], 10/13/2022 15:19:45 10/14/19 23 10/13/2022 HEPAT IC/LI VANIA PANEL alkaline phosphatase 65 U/L 38-126 Not Available [facility] (Lab) [address] [place], [address], 10/13/2022 15:11:54 10/14/19 23 10/13/2022 HEPAT IC/LI VANIA PANEL alanine aminotransfe rase 26 U/L 0-35 Not Available [facility] (Lab) [address] [place], [address], 10/13/2022 15:11:54 10/14/19 23 10/13/2022 HEPAT IC/LI VANIA PANEL aspartate aminotransfe rase 29 U/L 15-37 Not Available [facility] (Lab) [address] [place], [address], 10/13/2022 15:11:54 10/14/19 23 10/13/2022 HEPAT IC/LI VANIA PANEL bilirubin, total 0.40 mg/dL 0.20-[address] [facility] (Lab) [address] [place], [address], 10/13/2022 15:11:54 10/14/19 23 10/13/2022 HEPAT IC/LI VANIA PANEL bilirubin, conjugated (direct) 0.00 mg/dL 0.00-[address] [facility] (Lab) [address] [place], [address], 10/13/2022 15:11:54 10/14/19 23 10/13/2022 HEPAT IC/LI VANIA PANEL biliurubin,u ncong. (indirect) 0.30 mg/dL 0.00-[address] [facility] (Lab) [address] [place], [address], 10/13/2022 15:11:54 10/14/19 23 10/13/2022 HEPAT IC/LI VANIA PANEL total protein 7.3 g/dL 6.3-8. [address] [facility] (Lab) [address] [place], [address], 10/13/2022 15:11:54 10/14/19 23 10/13/2022 HEPAT IC/LI VANIA PANEL albumin 4.6 g/dL 3.4-5. [address] [facility] (Lab) [address] [place], [address], 10/13/2022 15:11:54 10/14/19 23 10/13/2022 HEPAT IC/LI VANIA PANEL globulin 2.7 g/dL 2.6-4. [address] [facility] (Lab) [address] [place], [address], 10/13/2022 15:11:54 10/14/19 23 10/13/2022 HEPAT IC/LI VANIA PANEL A/G ratio 1.7 ratio 1.0-2. [address] [facility] (Lab) [address] [place], [address], 10/13/2022 15:11:54 10/14/19 23 10/13/2022 GGT/G -GLUT AMYL TRANS FERAS E gamma-glutam yl transferase 33 U/L 12-43 Not Available [facility] (Lab) [address] [place], [address], 10/13/2022 15:11:58 05/05/19 23 05/03/2022 MAMMO , scree alyse, digit al, bilat eral No observ ation record ed. [email or web address] [facility] [address] [place] [address], [address], 05/04/2022 10:06:25 08/31/19 DEXA, axial skele ton [facility] [address] [place], [place] [id number] [phone] Patien t Name: ANTONIA BERGER ion #: [id number] Sex: F : 1970 9 Dictat ed By: Edwina dempsey Attend ing Physic catia: YANNI GARCIA [facility] Physic catia: YANNI GARCIA Exam Date: 2022 08:07 AM Exam Name: XR DEXA AXIAL/ HIP/PE LVIS/S PINE Admitt ing Diagno sis(es ): CLINIC AL HISTOR Y: Postme nopaus al screen ing for osteop orosis . TECHNI QUE: The study was perfor med using a [employer]. Lumbar spine and proxim al femora l evalua tions were evalua melissa in the fronta l projec tions. COMPAR STU: None. Baseli ne examin ation. FINDIN GS: L1-L4 demons trates a bone minera l densit y of 1.154 g/cm2 with a T-scor e of -0.3, within normal limits . Left femora l neck evalua tion demons trates a bone minera l densit y of 0.921 g/cm2 with a T-scor e of -0.8, within normal limits . Right femora l neck evalua tion demons trates a bone minera l densit y of 0.982 g/cm2 with a T-scor e of -0.4 within normal limits . IMPRES NIDIA: Bone minera l densit y is within the range of normal as descri bed above. Electr onical ly Signed by: Edwina dempsey at 2022 10:05: 06 AM Page [email or web address] [facility] ([facility]) [address] [place], [address], 09/11/2022 10:32:01 09/01/19 23 XR, knee No observ ation record ed. [email or web address] [facility] [address] [facility], [place], [address], 08/31/2022 11:41:42 05/16/19 24 03/14/2023 CT, chest , w/o contr ast No observ ation record ed. BARCODE Not Available 2023 10:55:18 06/18/19 24 06/18/2023 MAMMO , scree alyse, digit al, bilat eral No observ ation record ed. [email or web address] [facility] [address] [place] [address], [id number], 06/19/2023 08:01:01 Result Notes None recorded. Problems Name Problem SNOMED Code Status Onset Date Resolution Date Notes Provider Name and Address Organization Details Recorded Time Dysfunctio n of bilateral eustachian tubes 4368104107964 100 Active 2021 Not Available [employer] 4 01:57:52 Hearing loss [id number] Active 2021 Beatris Rao APRN [address] [facility], [facility] [address], [place], [address] , [facility] [employer] 4 10:25:29 Acute sinusitis 37601605 Active 2021 Not Available [employer] 4 01:57:52 Pain in left arm 123482192 Active 2016 Not Available [employer] 4 01:57:52 Dyslipidem ia 210173253 Active 2017 Not Available [employer] 4 01:57:52 Migraine 53341037 Active 2017 Not Available [employer] 4 01:57:52 Pharyngiti s 463029411 Active Not Available [employer] 4 01:57:52 Hyperlipid emia 58020231 Active 2021 eBatris Rao APRN [address], [address], [place], [address] , [employer] [facility] 4 10:25:10 Posterior rhinorrhea 80013922 Active 2021 Not Available [facility] 4 01:57:52 Uterine leiomyoma 98445769 Active Beatris Rao APRN [address], [address], [place], [address] , [employer] [facility] 4 10:25:32 Menstrual migraine 87713767 Active 2022 Not Available [facility] 4 01:57:52 Dysfunctio n of eustachian tube 75996079 Active 2022 Not Available [facility] 4 01:57:52 Synovial cyst of knee 174567896 Active 2022 Not Available [facility] 4 01:57:52 Acid reflux 856367878 Active 2022 Beatris Rao APRN [address], [address], [place], [address] , [employer] [facility] 4 10:25:21 Pain of bilateral knee joints 8046251763819 04 Active 2022 Not Available [facility] 4 01:57:52 Liver enzymes level above reference range 198139458 Active 2022 Not Available [facility] 4 01:57:52 Muscle strain 13060671 Active 2022 Not Available [facility] 4 01:57:52 Multiple nodules of lung 337158893 Active 2023 Beatris Rao, ORTHODONTIC TREATMENT COORDINATOR [address], [facility] [address], [place], [address] , [employer] 4 10:30:21 Seasonal allergy 106392122 Active 2023 Beatris Rao, ORTHODONTIC TREATMENT COORDINATOR [address], [facility] [address], [place], [address] , [employer] 4 10:59:14 Problem Notes None recorded. Procedures Surgical History Date Name Laterality Status Provider Name and Address Organization Details Recorded Time section completed PRIMO Carroll [employer] 08/31/2022 11:10:47 Imaging Results Imaging Date Name Status LastModified by Organiz ation Details LastModified Time 05/03/2022 MAMMO, screening, digital, bilateral completed [email or web address] [facility] [address] [place] [address], [address], 05/04/2022 10:06:25 08/30/2022 DEXA, axial skeleton completed [email or web address] [facility] (Imaging) [address] [place], [address], 09/11/2022 10:32:01 08/31/2022 XR, knee completed [email or web address] [facility] [address] [facility], [place], [address], 08/31/2022 11:41:42 03/14/2023 CT, chest, w/o contrast completed [employer] Information not available 05/16/2023 10:55:18 06/18/2023 MAMMO, screening, digital, bilateral completed [email or web address] [address], [address], 06/19/2023 08:01:01 Procedure Notes None recorded. Medical Equipment None Reported. Allergies Allergen ID Allergen Name Allergen Category Reaction Reaction Severity Criticality Documentation Date Start Date Code Code System Note Provider Name and Address Organization Details Recorded Time 46126 Product containin g penicilli n (product) medicatio n Not available Not available Not available 04/12/2022 78992 8001 SNOMED Not Available [facility] 3 06:08:03 Medications Name Sig Start Date Stop Date Status Note LastModified by Organization Details LastModified Time doxycycline hyclate 100 mg capsule TK 1 C PO BID FOR 7 DAYS active Not Available Not Available No t Available azithromyci n 250 mg tablet TK UTD active Not Available Not Available Not Available atovaquone 250 mg-proguani l 100 mg tablet active Not Available Not Available Not Available prednisone 20 mg tablet take 2 tablets at once for 4 days and then 1 tablet for 2 days active Not Available Not Available No t Available clobetasol 0.05 % topical cream APPLY THIN LAYER EXTERNALL Y TO THE AFFECTED AREA TWICE DAILY NEEDED 08/31 completed Not Available Not Available Not Available metronidazo le 500 mg tablet Take 1 tablet every 8 hours by oral route for 7 days. active Not Available Not Available No t Available cephalexin 500 mg capsule TAKE 1 CAPSULE BY MOUTH TWICE DAILY FOR 10 DAYS active Not Available Not Available No t Available erythromyci n 5 mg/gram (0.5 %) eye ointment active Not Available Not Available Not Available omeprazole 20 mg capsule,del ayed release TAKE 1 CAPSULE BY MOUTH 30 TO 60 MINUTES BEFORE BREAKFAST active Not Available Not Available No t Available etodolac 400 mg tablet Take 1 tablet twice a day by oral route for 30 days. active Not Available Not Available No t Available azelastine 137 mcg (0.1 %) nasal spray USE 2 SPRAYS IN EACH NOSTRIL TWICE DAILY 08/31 completed Not Available Not Available Not Available methylpredn isolone 4 mg tablets in a dose pack FOLLOW PACKAGE DIRECTION S 05/10 completed Not Available Not Available Not Available fluticasone propionate 50 mcg/actuati on nasal spray,suspe nsion SHAKE LIQUID AND USE 1 SPRAY IN EACH NOSTRIL EVERY DAY DIRECTED active Not Available Not Available No t Available Mononessa (28) 0.25 mg-35 mcg tablet active Not Available Not Available Not Available eletriptan 20 mg tablet tk 1 tab as needed for migraines active Not Available Not Available No t Available eletriptan 40 mg tablet TAKE ONE TABLET BY MOUTH AT ONSET OF HEADACHE. MAY REPEAT IN 2 HOURS IF NO RELIEF. NO MORE THAN 2 TABLETS PER 24 HOURS PERIOD 2023 active Not Available Not Available Not Avai lable rosuvastati n 20 mg tablet TAKE 1 TABLET BY MOUTH EVERY DAY 2024 active Not Available Not Available Not Avai lable Advil 200mg PRN 2019 active Not Available Not Available Not Avai lable Tylenol PRN 2019 active Not Available Not Available Not Avai lable Relpax 09/30 completed Not Available Not Available Not Available tranexamic acid 650 mg tablet 11/06 completed Not Available Not Available Not Available Suprep Bowel Prep Kit 17.5 gram-3.13 gram-1.6 gram oral solution 08/04 completed Not Available Not Available Not Available Generess Fe 0.8 mg-25 mcg (24)/75 mg (4) chewable tablet active Not Available Not Available Not Available Fluvirin 4659-0781 (PF) 45 mcg(15 mcg x3)/0.5 mL intramuscul ar syringe ADM 0.5ML IM UTD active Not Available Not Available No t Available Vitals Date Recorded Body height Body mass index (BMI) Body weight Body temperature Heart rate Oxygen saturation Oxygen saturation in Arterial blood by Pulse oximetry Systolic blood pressure Diastolic blood pressure Provider Name and Address Organization Details Last Updated DateTime 3 152.4 cm 22.8 kg/m2 32350.3 1 g 97.4 [degF] 62 /min 98 % 98 % 118 mm[Hg] 72 mm[Hg] Claudette Duran MA [employer] 3 10:09:26 Date Recorded Body height Body mass index (BMI) Body weight Provider Name and Address Organization Details Last Updated DateTime 08/31/2022 149.86 cm 22.6 kg/m2 97537.35 g PRIMO Carroll [employer] 08/31/2022 11:14:07 Date Recorded Body height Body mass index (BMI) Body weight Body temperature Heart rate Oxygen saturation Oxygen saturation in Arterial blood by Pulse oximetry Systolic blood pressure Diastolic blood pressure Provider Name and Address Organization Details Last Updated DateTime 3 149.86 cm 22.8 kg/m2 28338.9 4 g 97.6 [degF] 68 /min 98 % 98 % 114 mm[Hg] 74 mm[Hg] Claudette Duran MA [facility] [employer] 3 10:07:30 Date Recorded Body height Provider Name an d Address Organization Details Last Updated DateTime 05/16/2023 149.86 cm Kamryn Nobles PRN [address] [facility], [address], [place], [address], [facility] [employer] 05/16/2023 10:11:30 Date Recorded Body mass index (BMI) Body weight Body temperature Heart rate Oxygen saturation Oxygen saturation in Arterial blood by Pulse oximetry Systolic blood pressure Diastolic blood pressure Provider Name and Address Organization Details Last Updated DateTime 4 23.8 kg/m2 16219.9 g 95.4 [degF] 61 /min 98 % 98 % 122 mm[Hg] 70 mm[Hg] Nathalie Sidhu CMA [facility] [employer] 4 10:21:15 Date Recorded Body height Body mass index (BMI) Body weight Body temperature Oxygen saturation Oxygen saturation in Arterial blood by Pulse oximetry Heart rate Pain severity - 0-10 verbal numeric rating [Score] - Reported Systolic blood pressure Diastolic blood pressure Provider Name and Address Organization Details Last Updated DateTime 4 149.86 cm 23.4 kg/m2 75003.7 1 g 97 [degF] 99 % 99 % 63 /min 0 108 mm[Hg] 64 mm[Hg] Pam Jurado MA [facility] [employer] 4 10:42:55 Social History Question Answer Notes LastModified by Organizat ion Details LastModified Time Tobacco Smoking Status Never Smoker Not Available [employer] 04/12/2022 05:56:37 Do You Have An Advance Directive? No [id number].[id number] Information not available 04/12/2022 What Is Your Level Of Alcohol Consumption? Moderate MIGRATION.35311 [id number] Information not available 04/12/2022 What Is Your Level Of Caffeine Consumption? Moderate MIGRATION.87936 94470 Information not available 04/12/2022 In The 14 Days Before Symptom Onset, Have You Had Close Contact With A Laboratory-confir med COVID-19 While That Case Was Ill? No MIGRATION.[id number] [id number] Information not available 04/12/2022 In The 14 Days Before Symptom Onset, Have You Had Close Contact With A Person Who Is Under Investigation For COVID-19 While That Person Was Ill? No MIGRATION.70586 [id number] Information not available 04/12/2022 What Type Of Diet Are You Following? REGULAR MIGRATION.96507 05209 Information not available 04/12/2022 What Is The Highest Grade Or Level Of School You Have Completed Or The Highest Degree You Have Received? 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 No MIGRATION.22106 67606 Information not available 04/12/2022 What Is The Fluoride Status Of Your Home? Unknown MIGRATION.06392 82534 Information not available 04/12/2022 Are There Any Guns Present In Your Home? No MIGRATION.08188 15945 Information not available 04/12/2022 Where Do You Live? [place] MIGRATION.31294 35754 Information not available 04/12/2022 Do You Have A Medical Power Of Heavy Line Technician? No MIGRATION.51612 96958 Information not available 04/12/2022 What Was The Date Of Your Most Recent Tobacco Screening? 11/21/2023 Information not available 11/21/2023 How Many Children Do You Have? 1 Information not available 11/21/2023 Do You Have Any Pets? Yes MIGRATION.89534 62704 Information not available 04/12/2022 What Is Your Relationship Status? MIGRATION.54720 69153 Information not available 04/12/2022 Do You Use Your Seat Belt Or Car Seat Routinely? Yes MIGRATION.03387 69923 Information not available 04/12/2022 Do You Have Smoke And Carbon Monoxide Detectors In Your Home? Yes MIGRATION.80353 36553 Information not available 04/12/2022 Are You Passively Exposed To Smoke? No MIGRATION.52680 84217 Information not available 04/12/2022 Are There Any Smokers In Your House? No MIGRATION.90496 36135 Information not available 04/12/2022 Do You Feel Stressed (tense, Restless, Nervous, Or Anxious, Or Unable To Sleep At Night)? [id number] MIGRATION.00702 92580 Information not available 04/12/2022 Do You Use Any Illicit Or Recreational Drugs? No MIGRATION.01170 02139 Information not available 04/12/2022 Do You Use Sunscreen Routinely? Yes MIGRATION.07824 19632 Information not available 04/12/2022 Have You Recently Traveled Abroad? No MIGRATION.73115 27612 Information not available 04/12/2022 Do You Have Any Dietary Restrictions? No MIGRATION.23694 55770 Information not available 04/12/2022 Do You Or Have You Ever Used Any Other Forms Of Tobacco Or Nicotine? No MIGRATION.68964 63793 Information not available 04/12/2022 Sex: Unknown Functional Status Question Answer Note LastModified by Organizat ion Details LastModified Time What is your exercise level? Moderate [id number] Information not available 04/12/2022 Mental Status None recorded. Family History Relationship Description Onset Age of this Age Resolved Age Notes LastModified by Organization Details LastModified Time Father Heart disease Not available 2022 11:09:47 Father Family history of stroke [email or web address] Not available 2022 11:09:59 Father Hypertensive disorder [email or web address] Not available 2022 11:10:19 Mother Family history of malignant neoplasm [email or web address] Not available 2022 11:10:08 Mother Hypertensive disorder [email or web address] Not available 2022 11:10:19 Maternal Grandmother Diabetes mellitus Not available 2022 11:10:32 Medical History Condition Response MRSA N SLEEP APNEA N ALLERGIES/HAYFEVER N LUNG DISEASE/DISORDER N HISTORY OF DRUG ABUSE N INSOMNIA N COPD N RADIATION / CHEMOTHERAPY N HIGH CHOLESTEROL / HYPERLIPIDEMIA N HYPERTHYROIDISM N BLOOD DISEASES N EAR OR HEARING PROBLEMS N HYPOTHYROIDISM N SHINGLES N DEPRESSION (INCLUDING POST ) N HAVE YOU BEEN HOSPITALIZED OR SEEN IN [facility] IN THE PAST YEAR ? N STROKE/TIA N ULCERS N OBESITY N ANEURYSM N HISTORY WITH COMPLICATIONS WITH ANESTHES IA ? Y USE OF BLOOD THINNERS N NO SIGNIFICANT PAST MEDICAL HISTORY N DIABETES, TYPE N PARATHYROID DISEASE N ENT N SEASONAL ALLERGIES N HEARTBURN / REFLUX N HEPATITIS / LIVER DISEASE N SLEEP DISORDER N SEIZURES/EPILEPSY N HEADACHES/MIGRAINES N CHF N PACEMAKER N DIZZINESS N HEART DISEASE/HEART PROBLEMS N AIDS/HIV N FRACTURES N HYPERTENSION N CANCER: SPECIFY Y TOURETTE'S N BLOOD TRANSFUSION N ANEMIA/BLOOD DISORDER N ANESTHESIA COMPLICATIONS N CHRONIC EAR INFECTIONS N TUBERCULOSIS N Gynecological History Statement/Question Response How many live births 1 Date of Last Colonoscopy Date of Last Mammogram Date of LMP Most Recent Bone Density Date of Last Pap Current Control Method Menopause Obstetrics History GPAL:G 1 P 1 0 0 1 Type Value Multiple Births 0 Full Term 1 Induced 0 Spontaneous 0 Premature 0 Living 1 Ectopics 0 Total 1 Immunizations Vaccine Type Date Status Note Provider Nam e and Address Organization Details Recorded Time zoster recombinant 1 completed Beatris Rao APRN [address], [address], [place], [address], [employer] [facility] [employer] [facility] 05/16/2023 10:11:54 zoster recombinant 1 completed Beatris Rao APRN [address], [address], [place], [address], [employer] [facility] [employer] [facility] 05/16/2023 10:11:54 COVID-19, mRNA, LNP-S, PF, 30 mcg/0.3 mL dose, brii-sucrose 2 completed Beatris Rao APRN [address], [address], [place], [address], [employer] [facility] [employer] [facility] 05/16/2023 10:11:54 COVID-19, mRNA, LNP-S, bivalent, PF, 30 mcg/0.3 mL dose 2 completed Beatris Rao APRN [address], [address], [place], [address], [employer] [facility] [employer] [facility] 05/16/2023 10:11:54 Influenza, split virus, trivalent, PF 8 completed Beatris Rao APRN [address], [address], [place], [address], [employer] [facility] [employer] [facility] 05/16/2023 10:11:54 COVID-19, mRNA, LNP-S, PF, brii-sucrose, 30 mcg/0.3 mL 3 completed Beatris Rao APRN [address], [address], [place], [address], [facility] [employer] [facility] 09/25/2023 11:15:23 COVID-19, mRNA, LNP-S, PF, brii-sucrose, 30 mcg/0.3 mL 4 completed Beatris Rao APRN [address], [address], [place], [address], [facility] [employer] [facility] 11/21/2023 10:48:20 Influenza, MDCK, trivalent, PF 4 completed Beatris Rao APRN [address], [address], [place], [address], [facility] [employer] [facility] 11/21/2023 10:48:20 COVID-19, mRNA, LNP-S, PF, 30 mcg/0.3 mL dose 1 completed Beatris Rao APRN [address], [address], [place], [address], [facility] [employer] [facility] 05/16/2023 10:11:54 Influenza, split virus, quadrivalent, preservative 0 completed Not Available [facility] 02/12/2023 01:57:52 COVID-19, mRNA, LNP-S, PF, 30 mcg/0.3 mL dose [address], [place], [address], [facility] [employer] [facility] 05/16/2023 10:11:54 COVID-19, mRNA, LNP-S, PF, 30 mcg/0.3 mL dose 1 completed Beatris Rao APRN [address], [address], [place], [address], [facility] [employer] [facility] 05/16/2023 10:11:54 Influenza, split virus, quadrivalent, preservative 9 completed Not Available [facility] 02/12/2023 01:57:52 Influenza, split virus, quadrivalent, preservative 7 completed Not Available [facility] 02/12/2023 01:57:52 Past Encounters Encounter ID Performer Location Encounter Start Date Encounter Closed Date Diagnosis/Indication Diagnosis SNOMED-CT Code Diagnosis ICD10 Code Diagnosis Note [id number] [facility] Internal Med [facility] [address], [facility] [address] [place] [address] 09/20/2020 00:00:00 09/20/2020 14:10:31 [id number] [facility] Internal Med [place] [address] [facility] [address] , [place] [address] 03/23/2021 00:00:00 03/23/2021 13:28:12 [id number] [facility] ENT Alexander Dillon [address] [place] [address] 05/05/2021 00:00:00 05/05/2021 09:42:01 [id number] [facility] Internal Med [place] [address] [facility] [place] [address] 09/28/2021 00:00:00 09/28/2021 13:06:25 [id number] FABBY Agrawal-Elan [facility] Internal Med [place] [address] [place] [address] [place] [address] 05/10/2022 09:58:16 05/10/2022 10:39:59 Hyperlipidemia 18599945 E78.5 on rosuvastat in Dysfunctio n of eustachian tube 85357341 H69.90 requesting 2nd opinion with a different ENTNow following ENT- Dr. Jaron Bonilla in [place] Synovial cyst of knee 24 8346507 M71.20 get appt with ortho per her request Adult heal th examination 812785977 Z00.01 Postmenopausal state 764 67578 Z78.0 Acid reflux 230058354 K2 1.9 on omeprazole from ENT Depression screening 171 773130 Z13.31 Normal bod y mass index 26657902 Z68.22 recommend healthy, well balanced mealsfocus on lean meats, fresh vegetables , fresh fruits, whole grainsredu ce fast/proce ssed foods or eating out to no more than 1-2 times per weekaim to get 30 min of exercise most days of the week- walking is a great choicealso recommend resistance training 2-3 times per week Migraine 99719941 G43.90 9 on eletriptan prn [id number] JAMEEL Kumar [facility]_[address] [address] 08/31/2022 10:53:09 08/31/2022 11:47:37 Pain of bilateral knee joints 9008138856 97387 M25.561 M25.825 [id number] MARTÍNEZ Agrawal [facility] Internal Med Abdoulaye martinez [address] [place] [address] [place] [address] 11/08/2022 09:57:44 11/08/2022 10:22:52 Hyperlipidemia 86847849 E78.5 on rosuvastat in Migraine 79702020 G43.90 9 on eletriptan prn Dysfunctio n of eustachian tube 64086750 H69.90 requesting 2nd opinion with a different [facility]NTNow following ENT- Dr. Jaron [facility]illa in [facility] Synovial cyst of knee 24 3289909 M71.20 did see ortho- for now, are monitoring as she is asymptomat ic Acid reflux 762007190 K2 1.9 on omeprazole from ENT Normal bod y mass index 32548388 Z68.22 recommend healthy, well balanced mealsfocus on lean meats, fresh vegetables , fresh fruits, whole grainsredu ce fast/proce ssed foods or eating out to no more than 1-2 times per weekaim to get 30 min of exercise most days of the week- walking is a great choicealso recommend resistance training 2-3 times per week Muscle strain 53622373 T 14.8XXA She declines any meds or therapy at this time as it is improving and she is almost back to baselineCa office if she changes her mind [id number] Beatirs Rao APRN [facility] Med Abdoulaye martinez [address] [place] [address] [place] [address] 05/16/2023 10:06:24 05/16/2023 10:36:52 Multiple nodules of lung 126794514 R91.8 [id number] Beatris Rao APRN [facility] Internal Med Abdoulaye martinez [address] [facility] [place] [address] 11/21/2023 10:25:48 11/21/2023 11:08:44 Dyslipidemia 900643748 E78.5 Hyperlipidemia 62498179 E78.5 Renewal of prescription 700062300 Z76.0 Migraine 76310126 G43.90 9 Seasonal allergy 6228654 04 J30.2 Acid reflux 610754974 K2 1.9 Health Concerns Section Related Observation LastModified by Organization Detai ls LastModified Time None Recorded Concern Status LastModified by Organization Details LastModified Time None Recorded Advance Directives Directive N: Payers Encounter Date Sequence Insurance Name Policy Number Policy Leggett Covered Member ID Leggett Member ID Guarantor Name 05/10/2022 1 [employer] - OPEN ACCESS [id number] Antonia [facility] [id number] SOI [facility] 08/31/2022 1 [employer] - OPEN ACCESS [id number] [facility]ia [facility] [id number] SOI [facility] 11/08/2022 1 [employer] - OPEN ACCESS [id number] Antonia [facility] [id number] SOI Antonia [facility] 05/16/2023 1 [employer] - [employer] SOL[employer] - OPEN ACCESS [id number] [facility]ia [facility] [id number] SOI [facility] 11/21/2023 1 [employer] SOLUTIONS - OPEN ACCESS [id number] Antonia [facility] [id number] SOI Antonia [facility] Notes Date Note Type Note Provider Name and Address Organization Details Recorded Time 05/10/2022 text/html Antonia presents today for follow-up. She is also due for annual wellness exam. She reports she did see the ENT over in [place]. She saw somebody who specialized working with patients who were seeing hers. She reports she did have a hearing test which was normal. They checked out her vocal cords and diagnosed with acid reflux. They put her on omeprazole and she reports she is doing much better. She had not yet go see the Ortho, she is requesting a repeat referral. She also had an old order from the recep to get a bone density which has , she is requesting order for this as well too. She is tolerating her statin without issue. She reports migraines are about the same as they always have been. The eletriptan works well for her when she has 1. She reports she can go for weeks without 1 and then will have 1 that last for about 3 days. This is her typical pattern and has not changed. She tells me she is not interested in preventative daily medication as she feels her current regimen is working well for her. She is due for labs. MARTÍNEZ Agrawal [address] [facility], [address], [place], [address], [employer] 05/10/2022 10:43:18 11/08/2022 text/html Antonia presents today for follow-up. She reports her migraines are well controlled on the triptan. She reports the migraines are about the same as they always have been, she gets them in clusters. She can get 1-2 at a time and then will have any for several weeks. They are not worse than they have been, she reports they are about the same. She is tolerating the rosuvastatin without issue. She did see Ortho for her knees. They have decided to just watch and see if she develops symptoms. She reports that she pulled a muscle in her back but that is improving. MARTÍNEZ Agrawal [address], [address], [place], [address], [employer] 11/08/2022 13:51:00 05/16/2023 text/html Antonia presents today to establish care with this provider. She states that she was in a study regarding lung function. She states that the CT scan they performed showed some nodules, which she would like to have investigated. She states that she has changed her diet and is taking omeprazole for her GERD. She states that her migraines are under control with the eletriptan. 11/08/2022Antonia presents today for follow-up.She reports her migraines are well controlled on the triptan. She reports the migraines are about the same as they always have been, she gets them in clusters. She can get 1-2 at a time and then will have any for several weeks. They are not worse than they have been, she reports they are about the same. She is tolerating the rosuvastatin without issue. She did see Ortho for her knees. They have decided to just watch and see if she develops symptoms. She reports that she pulled a muscle in her back but that is improving. Beatris Rao APRN [address], [address], [place], [id number], [employer] 05/16/2023 10:33:33 11/21/2023 text/html Antonia presents today for 6 month follow up. She states that she has been having some sinus congestion but she uses a crow pot and flonase and that seems to help. She is due for labs this visit. 05/16/2023Antonia presents today to establish care with this provider. She states that she was in a study regarding lung function. She states that the CT scan they performed showed some nodules, which she would like to have investigated. She states that she has changed her diet and is taking omeprazole for her GERD. She states that her migraines are under control with the eletriptan. 11/08/2022Antonia presents today for follow-up.She reports her migraines are well controlled on the triptan. She reports the migraines are about the same as they always have been, she gets them in clusters. She can get 1-2 at a time and then will have any for several weeks. They are not worse than they have been, she reports they are about the same. She is tolerating the rosuvastatin without issue. She did see Ortho for her knees. They have decided to just watch and see if she develops symptoms. She reports that she pulled a muscle in her back but that is improving. Beatris Rao APRN [address], [address], [place], [id number], [employer] 11/21/2023 11:05:55 OBGyn Episode No OBEpisode recorded.
== END 2024-05-14 13:00 | disposition home or self-care (01) ==
LOC: ANHIMG 13:00
PROVIDERS: PCP Internal Medicine; Visit Provider Surgery
DX: N63.15 Unspecified lump in the right breast, overlapping quadrants (principal); Z80.3 Family history of malignant neoplasm of breast
CPT/HCPCS: 76642; 77062; 77066; G0279